=== PATIENT | male | born 1960 | race Caucasian/White ===

== ENCOUNTER 2017-02-10 05:29 | Outpatient (CLI) | payer BC ==
[~2017-02-10] VITALS: Ht 167.6 cm; Wt 90.7 kg
[2017-02-10] MEDS ORDERED: VENL75CA PO (09:43)
[2017-02-10] MEDS ORDERED: FENO145T2 PO (09:43)
[2017-02-10] MEDS ORDERED: PRAV20TA3 PO (09:43)
[2017-02-10] MEDS ORDERED: AMLO1CAP5 PO (09:43)
[2017-02-10] MEDS ORDERED: PANT40TA2 PO (09:43)
[2017-02-10] MEDS ORDERED: METO5TAB75 PO (09:43)
== END 2017-02-10 09:48 ==
LOC: PREOP 05:29
PROVIDERS: ATTEND Surgery
DX: Z01.818 Encounter for other preprocedural examination (principal); Z12.11 Encounter for screening for malignant neoplasm of colon; Z80.0 Family history of malignant neoplasm of digestive organs; K21.9 Gastro-esophageal reflux disease without esophagitis

== ENCOUNTER 2017-02-12 09:15 | Day surgery (SDC) | payer BC ==
[~2017-02-12] VITALS: Ht 167.6 cm; Wt 90.7 kg
[~2017-02-12 09:15] MED LIST: AMLO1CAP5 PO; FENO145T2 PO; METO5TAB75 PO; PANT40TA2 PO; PRAV20TA3 PO; VENL75CA PO
[2017-02-12] MEDS ORDERED: FLUMAZENIL (ROMAZICON) 0.1 MG/ML 5 ML VIAL INJ PRN (09:30)
[2017-02-12] MEDS ORDERED: NALOXONE 0.4 MG/ML 1 ML (NARCAN) VIAL IVP PRN (09:30)
[2017-02-12] MEDS ORDERED: HURRICAINE EXT TUBE (BENZOCAINE) XX PRN (09:30)
[2017-02-12] MEDS ORDERED: NS IV 500 ML 500 ML ONE ×2 (09:30→14:27)
--- NOTE | 2017-02-12 09:38 | Conscious Sedation/ASA ---
Conscious Sedation Pre-Proced Time Reviewed: 09:30 ASA Class: 2 Airway Mallampati Classification: ([place] appropriate class) I. II. III, IV Lungs Heart ASA score ASA 1: a normal healthy patient ASA 2: a patient with a mild systemic disease (mid diabetes, controlled hypertension, obesity ASA 3: a patient with a severe systemic disease that limits activity (angina , COPD, prior Myocardial infarction) ASA 4: a patient with an incapacitating disease that is a constant threat to life (CHF, renal failure) ASA 5: a moribund patient not expected to survive 24 hrs. (ruptured aneurysm) ASA 6: a declared brain patient whose organs are being harvested. For emergent operations, add the letter E after the classification Grade 2 Sedation Plan: Analgesia, Amnesia, Plan communicated to team members, Discussed options with patient/fam, Discussed risks with patient/fam Note The patient is an appropriate candidate to undergo the planned procedure, sedation, and anesthesia. The patient immediately re-assessed prior to indication. ANGIE KIMBROUGH MD Feb 12, 2017 9:38 am
[2017-02-12 09:39] VITALS: BP 123/72
--- NOTE | 2017-02-12 09:39 | Progress Note-Pre Operative ---
Pre-Operative Progress Note H&P Reviewed The H&P was reviewed, patient examined and no changes noted. Date Seen by Provider: Feb 12, 2017 Time Seen by Provider: : Date H&P Reviewed: Feb 12, 2017 Time H&P Reviewed: :30 Pre-Operative Diagnosis: GERD, family hx colon ca ANGIE KIMBROUGH MD Feb 12, 2017 9:39 am
[2017-02-12] MEDS: NS IV 500 ML 500 ML IV SCH ×2 (09:40→14:32)
[2017-02-12] MEDS ORDERED: ACETAMINOPHEN 325 MG TABLET/CAPLET (TYLENOL) PO PRN (09:45)
[2017-02-12] MEDS ORDERED: HYDROcodone/APAP 5 MG/325 MG (LORTAB) TAB PO PRN (09:45)
[2017-02-12] MEDS ORDERED: morphine INJ 10 MG/ML 1ML (SYR OR VIAL) IV PRN (09:45)
[2017-02-12] MEDS ORDERED: ONDANSETRON 4 MG/2 ML (SDV) Z0FRAN IV PRN (09:45)
[2017-02-12] MEDS ORDERED: LIDOCAINE JELLY 2% (XYLOCAINE) 5 ML TUBE ONE (13:31)
[2017-02-12] MEDS ORDERED: MIDAZOLAM 2 MG/2 ML (VERSED) VIAL ONE ×5 (13:32→14:25)
[2017-02-12] MEDS ORDERED: HURRICAINE EXT TUBE (BENZOCAINE) ONE (13:32)
[2017-02-12] MEDS ORDERED: fentaNYL INJECTION 100 MCG/2 ML AMP ONE ×3 (13:32→14:26)
[2017-02-12] MEDS: fentaNYL INJECTION 100 MCG/2 ML AMP IVP PRN ×6 (13:57→14:32)
[2017-02-12] MEDS: MIDAZOLAM 2 MG/2 ML (VERSED) VIAL IVP PRN ×4 (14:10→14:28)
[2017-02-12] MEDS: LIDOCAINE JELLY 2% (XYLOCAINE) 5 ML TUBE MM PRN ×2 (14:10→14:24)
--- NOTE | 2017-02-12 14:49 | Progress Note-Post Operative ---
Post-Operative Progess Note Surgeon (s)/Pet Counselor (s) Surgeon ANGIE KIMBROUGH MD Pet Counselor: none Pre-Operative Diagnosis GERD, family hx colon ca Post-Operative Diagnosis reflux esophagitis(class B), mod-large hiatal hernia(4cm), mild gastritis. chronic stage 2 ext and int hemorrhoids. Procedure & Operative Findings Date of Procedure 02/12/17 Procedure Performed/Findings EGD wtih bx. Colonoscopy. Anesthesia Type CS Estimated Blood Loss Estimated blood loss (mL): minimal Specimens/Packing Specimens Removed GE jxn, antrum ANGIE KIMBROUGH MD Feb 12, 2017 2:49 pm
[2017-02-12] MEDS ORDERED: SUCR1TAB36 PO (14:50)
--- NOTE | 2017-02-12 14:51 | Discharge Inst-Surgical ---
D/C Lap Instructions-KIDMary New, Converted, or Re-Newed RX: RX on Chart Follow Up Appt in 6 weeks Activity as tolerated High Fiber Diet 25g or more per day Avoid Alcohol, Caffeine, Spicy [place] and Acid foods. Drink 64 fluid oz or more of fluids per day. Symptoms to Report: Fever over 101 degree F, Nausea/Vomiting If any problems/questions: Contact your physician or go to Emergency Room ANGIE KIMBROUGH MD Feb 12, 2017 2:51 pm
[2017-02-12 15:10] VITALS: BP 100/78
[2017-02-12 15:35] VITALS: BP 121/84
[2017-02-12 15:46] VITALS: BP 121/84
== END 2017-02-12 15:47 | disposition home or self-care (01) ==
LOC: ENDO 09:15
PROVIDERS: ATTEND Surgery
DX: Z12.11 Encounter for screening for malignant neoplasm of colon (principal); K21.0 Gastro-esophageal reflux disease with esophagitis; K44.9 Diaphragmatic hernia without obstruction or gangrene; K29.60 Other gastritis without bleeding; K64.1 Second degree hemorrhoids; Z80.0 Family history of malignant neoplasm of digestive organs